=== PATIENT | male | born 1995 | race Caucasian/White ===

== ENCOUNTER 2018-09-26 07:24 | Emergency (ER) | payer OTHER ==
[~2018-09-26] VITALS: Ht 188 cm; Wt 104.5 kg
[2018-09-26] MEDS ORDERED: CYCL5TAB PO (07:30)
[2018-09-26 09:31] LABS: BASO % 0.4 % (0.0-1.0); EOS # 0.3 10^3/uL (0.0-0.50); EOS % 3.7 % (0.0-3.0); HEMATOCRIT 42.7 % (42.0-52.0); HEMOGLOBIN 14.3 g/dl (13.5-17.5); LYMPH # 2.1 10^3/uL (1.5-6.5); LYMPH % 26.9 % (24.0-44.0); MEAN CORPUSCULAR HEMOGLOBIN 29.1 pg (27.0-33.0); MEAN CORPUSCULAR HGB CONC 33.5 g/dl (32.0-36.5); MONO # 0.7 10^3/uL (0.0-0.8); MONO % 8.6 % (0.0-5.0); NEUTROPHILS # 4.7 10^3/uL (1.8-7.7); PLATELET COUNT, AUTOMATED 244 10^3/uL (150-450); RED BLOOD COUNT 4.91 10^6/uL (4.30-6.10); WHITE BLOOD COUNT 7.8 10^3/uL (4.0-10.0)
[2018-09-26 09:53] LABS: MONO REFLEX EBV COMP NEGATIVE (NEGATIVE)
[2018-09-26] MEDS ORDERED: PENI500T PO (11:32)
[2018-09-26 11:40] VITALS: BP 139/78
[2018-09-28 00:09] LABS: EBV AB TO NUCLEAR ANTIGEN >600.0 U/mL (0.0-17.9); EBV VIRAL CAPSID AG IgG >600.0 U/mL (0.0-17.9); EBV VIRAL CAPSID AG IgM <36.0 U/mL (0.0-35.9)
== END 2018-09-26 11:45 | disposition home or self-care (01) ==
LOC: M ED 07:24
DX: J04.0 Acute laryngitis (principal); Z87.891 Personal history of nicotine dependence